=== PATIENT | male | born 1985 | race Caucasian/White ===

== ENCOUNTER 2016-09-12 13:35 | Emergency (ER) | payer OTHER ==
[2016-09-12] MEDS ORDERED: ONDANSETRON ODT 4 MG TAB PO STA (15:28)
[2016-09-12] MEDS ORDERED: ONDANSETRON 4 MG ODT STARTER PACK 2 TAB BTL PO STA (15:28)
--- NOTE | 2016-09-12 15:30 | ED ---
General Adult HPI - General Chief complaint: Nausea/Vomiting/Diarrhea Stated complaint: Nausea/Vomiting Time Seen by Provider: 09/12/16 15:11 Source: patient, RN notes reviewed Mode of arrival: ambulatory Limitations: no limitations - History of Present Illness Initial comments: Patient 30-year-old male who presents emergency room today with chief complaint of symptoms of nausea vomiting that began earlier today. He does admit that there've been several people in his house that has similar symptoms. States most recently his daughter was sick for 3 days with similar symptoms. Patient states his symptoms started early this morning his had one episode of vomiting. Denies any abdominal pain at this time. States still feeling nauseated. Denies any other complaints. States he was at work was sent home decided come here to the emergency room to be checked. Patient denies any recent fever, chills, shortness of breath, chest pain, back pain, abdominal pain, numbness or tingling, dysuria or hematuria, constipation or diarrhea, headaches or visual changes, or any other complaints. - Related Data Home Medications Medication Instructions Recorded Confirmed Zofran(Unknown Dose) 1 tab PO ONCE PRN 09/12/16 09/12/16 Previous Rx's Medication Instructions Recorded Ondansetron Odt [Zofran ODT] 4 mg PO Q8HR PRN #20 tab 09/12/16 Allergies Allergy/AdvReac Type Severity Reaction Status Date / Time No Known Allergies Allergy Verified 09/12/16 15:38 Review of Systems ROS Statement: Those systems with pertinent positive or pertinent negative responses have been documented in the HPI. ROS Other: All systems not noted in ROS Statement are negative. Past Medical History Past Medical History: No Reported History History of Any Multi-Drug Resistant Organisms: None Reported Past Surgical History: No Surgical Hx Reported Past Psychological History: No Psychological Hx Reported Smoking Status: Current every day smoker Past Alcohol Use History: Rare Past Drug Use History: None Reported General Exam - General Exam Comments Initial Comments: General: The patient is awake and alert, in no distress, and does not appear acutely ill. Eye: Pupils are equal, round and reactive to light, extra-ocular movements are intact. No nystagmus. There is normal conjunctiva bilaterally. No signs of icterus. Ears, nose, mouth and throat: There are moist mucous membranes and no oral lesions. Neck: The neck is supple, there is no tenderness or JVD. Cardiovascular: There is a regular rate and rhythm. No murmur, rub or gallop is appreciated. Respiratory: Lungs are clear to auscultation, respirations are non-labored, breath sounds are equal. No wheezes, stridor, rales, or rhonchi. Gastrointestinal: Soft, non-distended, non-tender abdomen without masses or organomegaly noted. There is no rebound or guarding present. No CVA tenderness. Bowel sounds are unremarkable. Musculoskeletal: Normal ROM, no tenderness. Strength 5/5. Sensation intact. Pulses equal bilaterally 2+. Neurological: A&O x 3. CN II-XII intact, There are no obvious motor or sensory deficits. Coordination appears grossly intact. Speech is normal. Skin: Skin is warm and dry and no rashes or lesions are noted. Psychiatric: Cooperative, appropriate mood & affect, normal judgment. Limitations: no limitations Course Vital Signs 09/12/16 14:12 Temperature 98.2 F Pulse Rate 81 Respiratory 16 Rate Blood Pressure 112/68 O2 Sat by Pulse 98 Oximetry Medical Decision Making - Medical Decision Making Patient will be given nausea medication here in emergency room. At this times in agreement that he does not feel it necessary to have IV. His abdomen soft nontender. Patient discharged home with nausea medication advised to return or follow-up family doctor. Disposition Clinical Impression: Nausea & vomiting Disposition: HOME SELF-CARE Condition: Good Instructions: Acute Nausea and Vomiting (ED) Additional Instructions: Please use medication as discussed. Please follow-up with family doctor in the next 2 days of symptoms have not improved. Please return to emergency room if the symptoms increase or worsen or for any other concerns. Prescriptions: Ondansetron Odt [Zofran ODT] 4 mg PO Q8HR PRN #20 tab PRN Reason: Nausea Referrals: None,Stated [Primary Care Provider] - 1-2 days Time of Disposition: 15:30
[2016-09-12 16:04] VITALS: BP 124/68; PULSE 72; RESP 18; TEMP 98.4
== END 2016-09-12 16:02 | disposition home or self-care (01) ==
LOC: EC 13:35
DX: R11.2 Nausea with vomiting, unspecified (principal); F17.200 Nicotine dependence, unspecified, uncomplicated
CPT/HCPCS: 99283; S0119

== ENCOUNTER 2016-10-30 13:49 | Emergency (ER) | payer OTHER ==
[2016-10-30 13:58] VITALS: BP 143/79; PULSE 78; RESP 20; TEMP 98.3
[2016-10-30] MEDS ORDERED: methylPREDNISolone SOD SUCCI 125 MG/2 ML VIAL IM ONE (14:08)
--- NOTE | 2016-10-30 14:08 | ED ---
Eye Problem HPI - General Chief complaint: Eye Problems Stated complaint: Eye Problems Time Seen by Provider: 10/30/16 13:59 Source: patient Mode of arrival: ambulatory Limitations: no limitations - History of Present Illness Initial comments: 30-year-old male presents to the ER complaining of left eyelid swelling and pain. He states that it started yesterday morning but was not too severe as he did work the full day. He states that when he woke up this morning it was more swollen. He has been doing warm compresses today and that has helped bring the swelling down. He states that there was no trauma and it does not feel like there is a foreign body in the eye. He states that he does have pets at home has an indoor job and does report that no other people he is in contact with her having any eye symptoms at this time. He states that he does have a young child at home and was concerned with being contagious. He states that he has no vision change and no eye pain however irritation from the eyelid being swollen. Since that he has no constitutional symptoms including fever, headache , chills, sore throat. He states that he does have some seasonal ALLERGIES and he has been taking Claritin on and off for that. - Related Data Home Medications Medication Instructions Recorded Confirmed No Known Home Medications [No 10/30/16 10/30/16 Known Home Medications] Allergies Allergy/AdvReac Type Severity Reaction Status Date / Time No Known Allergies Allergy Verified 10/30/16 13:58 Review of Systems ROS Statement: Those systems with pertinent positive or pertinent negative responses have been documented in the HPI. ROS Other: All systems not noted in ROS Statement are negative. Past Medical History Past Medical History: No Reported History History of Any Multi-Drug Resistant Organisms: None Reported Past Surgical History: No Surgical Hx Reported Past Psychological History: No Psychological Hx Reported Smoking Status: Current every day smoker Past Alcohol Use History: None Reported Past Drug Use History: None Reported General Exam Limitations: no limitations General appearance: alert, in no apparent distress Head exam: Present: atraumatic, normocephalic Eye exam: Present: PERRL, EOMI, other (Left upper eyelid edematous, very minimal scleral injection of the left lateral eye. Right eye within normal limits. Vision is 20/20 OD, OS, both eyes.) Pupils: Present: normal accommodation ENT exam: Present: normal exam, normal oropharynx, mucous membranes moist, TM's normal bilaterally (Moderate amount of wax poor visualization.) Neck exam: Present: normal inspection, full ROM Respiratory exam: Present: normal lung sounds bilaterally Cardiovascular Exam: Present: regular rate, normal rhythm Neurological exam: Present: alert, oriented X3, CN II-XII intact Psychiatric exam: Present: normal affect, normal mood Skin exam: Present: warm, dry, intact Course Vital Signs 10/30/16 13:56 Temperature 98.3 F Pulse Rate 78 Respiratory 20 Rate Blood Pressure 143/79 O2 Sat by Pulse 98 Oximetry Medical Decision Making - Medical Decision Making 30-year-old male presents to the ER with left eyelid swelling and pain. He was nervous of being contagious due to having a small child at home. No other people he is to contact have any eye issues. Upon exam his eye does not appear to be infectious in nature. It does appear that this is either secondary to a bug bite or irritation or contact/allergic reaction. We'll recommend a Solu- Medrol injection in the ER today to help decrease reaction. Patient is to take his Claritin every morning and take Benadryl at night. He is to follow-up with his primary care physician. Also recommended to continue warm compresses and may use teabags if he would like to help minimize the swelling. No visual deficits. All questions were answered and patient was agreeable with treatment plan. To return to the ER with any worsening or new symptoms or concerns. Disposition Clinical Impression: Swelling of left eyelid Disposition: HOME SELF-CARE Condition: Good Instructions: Blepharitis (ED) Referrals: Shantanu Arenas MD [Primary Care Provider] - 1-2 days Time of Disposition: 14:19
== END 2016-10-30 14:26 | disposition home or self-care (01) ==
LOC: EC 13:49
DX: H02.844 Edema of left upper eyelid (principal); H57.12 Ocular pain, left eye; F17.200 Nicotine dependence, unspecified, uncomplicated
CPT/HCPCS: 99282; 96372; J2930

== ENCOUNTER 2016-11-02 09:14 | Emergency (ER) | payer OTHER ==
[2016-11-02 09:19] VITALS: BP 146/74; PULSE 84; RESP 16; TEMP 97
--- NOTE | 2016-11-02 10:02 | ED ---
Eye Problem HPI - General Chief complaint: Eye Problems Stated complaint: eye pain Time Seen by Provider: 11/02/16 09:51 Source: patient, RN notes reviewed Mode of arrival: ambulatory Limitations: no limitations - History of Present Illness Initial comments: 29-year-old male presents emergency Department chief complaint left eye redness , drainage. Patient states is another day told he had ALLERGIES but states is getting worse it's now crusted and purulent Drainage. Patient denies fever, chills, visual changes. Patient states that he's had no other changes he has been using the Claritin as directed but states is not helping. - Related Data Home Medications Medication Instructions Recorded Confirmed Loratadine [Claritin] 10 mg PO DAILY 11/02/16 11/02/16 diphenhydrAMINE [Benadryl] 25 mg PO HS PRN 11/02/16 11/02/16 Previous Rx's Medication Instructions Recorded Tobramycin [Tobrex 0.3% Ophth Soln] 1 drop LEFT EYE Q4HR #5 ml 11/02/16 Allergies Allergy/AdvReac Type Severity Reaction Status Date / Time No Known Allergies Allergy Verified 11/02/16 09:32 Review of Systems ROS Statement: Those systems with pertinent positive or pertinent negative responses have been documented in the HPI. ROS Other: All systems not noted in ROS Statement are negative. Past Medical History Past Medical History: No Reported History History of Any Multi-Drug Resistant Organisms: None Reported Past Surgical History: No Surgical Hx Reported Past Psychological History: No Psychological Hx Reported Smoking Status: Current every day smoker Past Alcohol Use History: None Reported Past Drug Use History: None Reported General Exam Limitations: no limitations General appearance: alert, in no apparent distress Head exam: Present: atraumatic, normocephalic, normal inspection Eye exam: Present: PERRL, EOMI, conjunctival injection (Left), other (Purulent drainage noted). Absent: normal appearance, scleral icterus, periorbital swelling, periorbital tenderness ENT exam: Present: normal exam, normal oropharynx, mucous membranes moist Neck exam: Present: normal inspection. Absent: tenderness, meningismus, lymphadenopathy Respiratory exam: Present: normal lung sounds bilaterally. Absent: respiratory distress, wheezes, rales, rhonchi, stridor Cardiovascular Exam: Present: regular rate, normal rhythm, normal heart sounds. Absent: systolic murmur, diastolic murmur, rubs, gallop, clicks Neurological exam: Present: alert Course Vital Signs 11/02/16 09:16 Temperature 97.0 F L Pulse Rate 84 Respiratory 16 Rate Blood Pressure 146/74 O2 Sat by Pulse 100 Oximetry Medical Decision Making - Medical Decision Making 30-year-old male present emergency department for left eye redness drainage. Patient was treated for bacterial conjunctivitis with tobramycin. Return parameters were discussed. Disposition Clinical Impression: Bacterial conjunctivitis Disposition: HOME SELF-CARE Condition: Stable Instructions: Conjunctivitis (ED) Additional Instructions: Please return to the Emergency Department if symptoms worsen or any other concerns. Prescriptions: Tobramycin [Tobrex 0.3% Ophth Soln] 1 drop LEFT EYE Q4HR #5 ml Time of Disposition: 10:02
== END 2016-11-02 10:15 | disposition home or self-care (01) ==
LOC: EC 09:14
DX: H10.89 Other conjunctivitis (principal); F17.200 Nicotine dependence, unspecified, uncomplicated; Z79.899 Other long term (current) drug therapy
CPT/HCPCS: 99283

== ENCOUNTER 2017-07-05 02:55 | Emergency (ER) | payer OTHER ==
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
--- NOTE | 2017-07-05 04:27 | XR ---
EXAM: XR Left Ankle Complete, 3 or More Views CLINICAL HISTORY: Reason: Pain TECHNIQUE: Frontal, lateral and oblique views of the left ankle. COMPARISON: No relevant prior studies available. FINDINGS: Bones/joints: Unremarkable. No acute fracture. No dislocation. Soft tissues: Unremarkable. IMPRESSION: Normal left ankle radiographs.
--- NOTE | 2017-07-05 04:27 | XR ---
EXAM: XR Left Foot Complete, 3 or More Views CLINICAL HISTORY: Reason: Pain TECHNIQUE: Frontal, lateral and oblique views of the left foot. COMPARISON: No relevant prior studies available. FINDINGS: Bones/joints: Unremarkable. No acute fracture. No dislocation. Soft tissues: Unremarkable. No radiopaque foreign body. IMPRESSION: Normal left foot radiographs.
--- NOTE | 2017-07-05 04:29 | CT ---
EXAM: CT Head Without Intravenous Contrast CLINICAL HISTORY: Reason: Pain TECHNIQUE: Axial computed tomography images of the head/brain without intravenous contrast. CTDI is 57.40 mGy and DLP is 892.1 mGy-cm. This CT exam was performed using one or more of the following dose reduction techniques: automated exposure control, adjustment of the mA and/or kV according to patient size, and/or use of iterative reconstruction technique. COMPARISON: No relevant prior studies available. FINDINGS: Brain: Unremarkable. No hemorrhage. No significant white matter disease. No edema. Ventricles: Unremarkable. No ventriculomegaly. Bones/joints: Unremarkable. No acute fracture. Soft tissues: Unremarkable. Sinuses: Unremarkable as visualized. No acute sinusitis. Mastoid air cells: Unremarkable as visualized. No mastoid effusion. IMPRESSION: No acute intrarenal process identified.
[2017-07-05 05:44] VITALS: BP 125/73; PULSE 70; RESP 18; TEMP 97.3
== END 2017-07-05 05:43 | disposition home or self-care (01) ==
LOC: EC 02:55
DX: S93.402A Sprain of unspecified ligament of left ankle, initial encounter (principal); S00.83XA Contusion of other part of head, initial encounter; R40.2412 Glasgow coma scale score 13-15, at arrival to emergency department; R11.0 Nausea; F17.200 Nicotine dependence, unspecified, uncomplicated; Y92.89 Other specified places as the place of occurrence of the external cause; V49.49XA Driver injured in collision with other motor vehicles in traffic accident, initial encounter
CPT/HCPCS: 70450; 99284

== ENCOUNTER 2019-04-30 07:49 | Emergency (ER) | payer OTHER ==
[2019-04-30 07:54] VITALS: TEMP 97.9
--- NOTE | 2019-04-30 08:28 | ED ---
URI HPI - General Chief Complaint: Upper Respiratory Infection Stated Complaint: cold/chest congestion Time Seen by Provider: 04/30/19 07:57 Source: patient, RN notes reviewed Mode of arrival: ambulatory Limitations: no limitations - History of Present Illness Initial Comments: 33-year-old male presents emergency Department with chief complaint of cough congestion. Patient states she's been sick for last 4-5 days. Patient states is productive cough with green to yellow sputum. Patient denies any known fevers or chills. He states that he's had multiple sick contacts. Patient recently stopped smoking. Patient states she has mildly congestion, mild sore throat. Patient's taking [id number] TheraFlu. - Related Data Previous Rx's Medication Instructions Recorded Cyclobenzaprine [Flexeril] 10 mg PO TID #14 tab 07/05/17 Ibuprofen 800 mg PO Q6HR PRN #20 tablet 07/05/17 Amoxicillin/Potassium Clav 1 tab PO Q12HR #20 tab 04/30/19 [Augmentin 875-125 Tablet] predniSONE 50 mg PO DAILY #5 tab 04/30/19 Allergies Allergy/AdvReac Type Severity Reaction Status Date / Time No Known Allergies Allergy Verified 11/02/16 09:32 Review of Systems ROS Statement: Those systems with pertinent positive or pertinent negative responses have been documented in the HPI. ROS Other: All systems not noted in ROS Statement are negative. Past Medical History Past Medical History: No Reported History History of Any Multi-Drug Resistant Organisms: None Reported Past Surgical History: No Surgical Hx Reported Past Psychological History: Depression Smoking Status: Former smoker Past Alcohol Use History: Occasional Past Drug Use History: None Reported General Exam Limitations: no limitations General appearance: alert, in no apparent distress Head exam: Present: atraumatic, normocephalic, normal inspection Eye exam: Present: normal appearance, PERRL, EOMI. Absent: scleral icterus, conjunctival injection, periorbital swelling ENT exam: Present: mucous membranes moist, TM's normal bilaterally. Absent: normal exam (Postnasal drainage), normal oropharynx (Mild erythema) Neck exam: Present: normal inspection, full ROM. Absent: tenderness, meningismus, lymphadenopathy Respiratory exam: Present: normal lung sounds bilaterally. Absent: respiratory distress, wheezes, rales, rhonchi, stridor Cardiovascular Exam: Present: regular rate, normal rhythm, normal heart sounds. Absent: systolic murmur, diastolic murmur, rubs, gallop, clicks GI/Abdominal exam: Present: soft, normal bowel sounds. Absent: distended, tenderness, guarding, rebound, rigid Course Vital Signs 04/30/19 04/30/19 07:51 07:55 Temperature 97.9 F Pulse Rate 86 Respiratory 18 18 Rate Blood Pressure 119/65 O2 Sat by Pulse 98 Oximetry Medical Decision Making - Medical Decision Making Chest x-rays unremarkable. Patient is a productive cough, sinus congestion consistent with acute bronchitis and sinusitis. Patient discharged Augmentin and prednisone. Disposition Clinical Impression: Sinusitis, Bronchitis Disposition: HOME SELF-CARE Condition: Stable Instructions (If sedation given, give patient instructions): Upper Respiratory Infection (ED) Additional Instructions: Please return to the Emergency Department if symptoms worsen or any other concerns. Prescriptions: Amoxicillin/Potassium Clav [Augmentin 875-125 Tablet] 1 tab PO Q12HR #20 tab predniSONE 50 mg PO DAILY #5 tab Is patient prescribed a controlled substance at d/c from ED?: No Referrals: None,Stated [REFERRING] - 1-2 days Time of Disposition: 08:55
--- NOTE | 2019-04-30 08:35 | XR ---
EXAMINATION TYPE: XR chest 2V DATE OF EXAM: 04/30/2019 COMPARISON: None HISTORY: Cough, flu symptoms TECHNIQUE: Frontal and lateral views of the chest are obtained. FINDINGS: There is no focal air space opacity, pleural effusion, or pneumothorax seen. The cardiac silhouette size is within normal limits. The osseous structures are intact. IMPRESSION: No acute cardiopulmonary process.
[2019-04-30 08:59] VITALS: BP 120/72; PULSE 84; RESP 16
== END 2019-04-30 08:57 | disposition home or self-care (01) ==
LOC: EC 07:49
DX: J20.9 Acute bronchitis, unspecified (principal); J32.9 Chronic sinusitis, unspecified; Z87.891 Personal history of nicotine dependence
CPT/HCPCS: 71046; 99283

== ENCOUNTER 2022-09-29 13:00 | Inpatient (IN) | payer OTHER ==
[2022-09-29] MEDS ORDERED: DIPH,PERTUS(ACELL)TETVAC-LF 0.5 ML VIAL IM ONE (13:19)
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
[2022-09-29 13:44] LABS: Basophils % (A) 0 %; Eosinophils # (A) 0.2 k/uL (0-0.7); Eosinophils % (A) 1 %; HCT 46.2 % (39.0-53.0); Lymphocytes # (A) 1.7 k/uL (1.0-4.8); Lymphocytes % (A) 15 %; MCH 30.7 pg (25.0-35.0); MCHC 34.7 g/dL (31.0-37.0); MCV 88.6 fL (80.0-100.0); Mean Platelet Volume 7.9; Monocytes # (A) 0.7 k/uL (0-1.0); Monocytes % (A) 6 %; Neutrophils # (A) 8.4 k/uL (1.3-7.7); Neutrophils % (A) 76 %; Platelet Count 219 k/uL (150-450); RBC 5.22 m/uL (4.30-5.90); WBC 11.1 k/uL (3.8-10.6)
[2022-09-29 13:53] LABS: Partial Thromboplastin Time 23.7 sec (22.0-30.0); Prothrombin Time 10.9 sec (9.0-12.0)
[2022-09-29 13:58] LABS: ALT 26 U/L (4-49); AST 36 U/L (17-59); African American GFR (CKD) >90 (>60 ml/min/1.73 sqM); Albumin 4.7 g/dL (3.5-5.0); Alcohol <10 mg/dL; Alkaline Phosphatase 62 U/L (38-126); Anion Gap 9 mmol/L; Blood Urea Nitrogen 10 mg/dL (9-20); Calcium 9.4 mg/dL (8.4-10.2); Carbon Dioxide 25 mmol/L (22-30); Chloride 106 mmol/L (98-107); Glucose 102 mg/dL (74-99); Non-African American GFR(CKD) >90 (>60 ml/min/1.73 sqM); Potassium 4.4 mmol/L (3.5-5.1); Sodium 140 mmol/L (137-145); Total Bilirubin 0.6 mg/dL (0.2-1.3); Total Protein 7.3 g/dL (6.3-8.2)
[2022-09-29] MEDS ORDERED: HYDROmorphone 0.5 MG/0.5 ML SYRINGE IVP STA (14:10)
[2022-09-29] MEDS ORDERED: ONDANSETRON 4 MG/2 ML VIAL IVP STA (14:10)
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
[2022-09-29] MEDS ORDERED: NALOXONE 0.4 MG/ML 1 ML VIAL IV PRN (15:08)
[2022-09-29] MEDS ORDERED: ONDANSETRON 4 MG/2 ML VIAL IVP PRN (15:08)
[2022-09-29] MEDS ORDERED: ACETAMINOPHEN TAB 325 MG TAB PO PRN (16:21)
[2022-09-29] MEDS: HYDROcodone/APAP 5-325MG 1 EACH TAB PO PRN ×2 (16:22→21:00)
[2022-09-29 16:42] LABS: Amphetamine Screen,Urine Not Detected (NotDetected); Barbiturate Screen,Urine Not Detected (NotDetected); Benzodiazepines Screen,Urine Not Detected (NotDetected); Cocaine Screen,Urine Not Detected (NotDetected); Methadone Screen, Urine Not Detected (NotDetected); Opiate Screen,Urine Detected (NotDetected); Oxycodone Screen, Urine Not Detected (NotDetected); Phencyclidine Screen,Urine Not Detected (NotDetected); Tricyclic Antidepressant,Urine Not Detected (NotDetected); Urn Cannabinoid Scrn Detected (NotDetected)
[2022-09-29] MEDS: HYDROmorphone 0.5 MG/0.5 ML SYRINGE IVP PRN ×2 (18:46→23:46)
[2022-09-29] MEDS: HEPARIN SODIUM,PORCINE/PF 5,000 UNIT/0.5 ML SYRINGE SQ SCH (23:43)
[2022-09-30] MEDS: HYDROmorphone 0.5 MG/0.5 ML SYRINGE IVP PRN ×3 (06:28→19:37)
[2022-09-30 09:06] LABS: Basophils % (A) 0 %; Eosinophils # (A) 0.4 k/uL (0-0.7); Eosinophils % (A) 5 %; HCT 43.2 % (39.0-53.0); HGB 14.3 gm/dL (13.0-17.5); Lymphocytes # (A) 2.3 k/uL (1.0-4.8); Lymphocytes % (A) 26 %; MCH 30.3 pg (25.0-35.0); MCV 91.8 fL (80.0-100.0); Mean Platelet Volume 8.5; Monocytes # (A) 0.6 k/uL (0-1.0); Monocytes % (A) 7 %; Neutrophils # (A) 5.6 k/uL (1.3-7.7); Neutrophils % (A) 61 %; Platelet Count 205 k/uL (150-450); RBC 4.71 m/uL (4.30-5.90); RDW 12.7 % (11.5-15.5); WBC 9.1 k/uL (3.8-10.6)
[2022-09-30] MEDS: HYDROcodone/APAP 5-325MG 1 EACH TAB PO PRN ×2 (09:28→20:46)
[2022-09-30] MEDS: HEPARIN SODIUM,PORCINE/PF 5,000 UNIT/0.5 ML SYRINGE SQ SCH ×2 (09:29→15:31)
[2022-09-30 11:28] LABS: African American GFR (CKD) 100.3 (60.0-200.0); Albumin 4.2 g/dL (3.8-4.9); Albumin/Globulin Ratio 2.21 (1.60-3.17); Blood Urea Nitrogen 13.2 mg/dL (9.0-27.0); Calcium 9.1 mg/dL (8.7-10.3); Globulin 1.9 g/dL (1.6-3.3); Non-African American GFR(CKD) 86.5 (60.0-200.0); Potassium 4.2 mmol/L (3.5-5.5); Total Bilirubin 0.9 mg/dL (0.30-1.20); Total Protein 6.1 g/dL (6.2-8.2)
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
[2022-10-01] MEDS: HEPARIN SODIUM,PORCINE/PF 5,000 UNIT/0.5 ML SYRINGE SQ SCH ×2 (00:41→08:15)
[2022-10-01 08:16] VITALS: BP 112/75; PULSE 70; RESP 18; TEMP 98.1
[2022-10-01] MEDS: HYDROcodone/APAP 5-325MG 1 EACH TAB PO PRN (08:19)
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
== END 2022-10-01 10:52 | disposition home or self-care (01) | DRG 914 ==
LOC: EC 13:00 → 4SSUR 15:42
PROVIDERS: ADMIT Surgery; ATTEND Surgery
PROC: 3E0234Z Introduction of Serum, Toxoid and Vaccine into Muscle, Percutaneous Approach (ICD-10-PCS; principal; 2022-09-29)
DX: S39.91XA Unspecified injury of abdomen, initial encounter (principal); Z23 Encounter for immunization; K42.9 Umbilical hernia without obstruction or gangrene; F32.A Depression, unspecified; F17.200 Nicotine dependence, unspecified, uncomplicated; M54.9 Dorsalgia, unspecified; V48.5XXA Car driver injured in noncollision transport accident in traffic accident, initial encounter; Y92.410 Unspecified street and highway as the place of occurrence of the external cause
CPT/HCPCS: 36415; 70450; 71260; 72125; 74177; 80053; 80306; 80320; 84484; 85025; 85610; 85730; 90471; 90715; 93005; 96374; 96375; 99285

== ENCOUNTER → 2022-10-04 | Outpatient (CLI) | payer OTHER ==
--- NOTE | 2022-10-04 14:45 | XR ---
EXAM TYPE: LUMBAR SPINE X RAY SERIES COMPARISON: NONE HISTORY: Pain TECHNIQUE: 4 views are submitted. FINDINGS: Alignment is anatomic. The pedicles are intact. The transverse processes are intact. There is no s pondylolysis or spondylolisthesis. Sclerosis right SI joint could be on the basis of a sacroiliitis. IMPRESSION: 1. No acute process.
--- NOTE | 2022-10-04 14:47 | XR ---
EXAMINATION TYPE: XR thoracic spine 2V DATE OF EXAM: 10/04/2022 COMPARISON: NONE HISTORY: Pain TECHNIQUE: 3 views submitted FINDINGS: Alignment is anatomic. There is no compression deformities. Vertebral body height and disc interspa marianela are maintained. Subtle curvature of the spine correlated for scoliosis. IMPRESSION: 1. No acute abnormality. If symptoms are persistent or there is concern for disc herniation correlat e with MRI.
== END | disposition home or self-care (01) ==
LOC: RADXRMAIN 13:48
PROVIDERS: ATTEND Family Medicine
DX: M54.50 Low back pain, unspecified (principal); M54.6 Pain in thoracic spine; V89.2XXD Person injured in unspecified motor-vehicle accident, traffic, subsequent encounter
CPT/HCPCS: 72070; 72110

== ENCOUNTER → 2022-10-05 | Outpatient (CLI) | payer OTHER ==
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
== END | disposition home or self-care (01) ==
LOC: RADCTMAIN 10:35
PROVIDERS: ATTEND Family Medicine
DX: R93.5 Abnormal findings on diagnostic imaging of other abdominal regions, including retroperitoneum (principal)
CPT/HCPCS: 74177; Q9967

== ENCOUNTER → 2022-10-27 | Outpatient (CLI) | payer OTHER ==
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
== END | disposition home or self-care (01) ==
LOC: RADCTMAIN 09:00
PROVIDERS: ATTEND Family Medicine
DX: R93.89 Abnormal findings on diagnostic imaging of other specified body structures (principal)
CPT/HCPCS: 71250

== ENCOUNTER → 2022-11-18 | Outpatient (CLI) | payer OTHER ==
[2022-11-18 20:19] LABS: Basophils # (A) 0.08 X 10*3/uL (0.00-0.10); Basophils % (A) 0.9 %; Eosinophils # (A) 0.14 X 10*3/uL (0.04-0.35); Eosinophils % (A) 1.5 %; HCT 45.6 % (39.6-50.0); HGB 14.9 g/dL (13.0-17.0); Immature Grans, Automated 0.7 %; Lymphocytes # (A) 1.98 X 10*3/uL (0.90-5.00); Lymphocytes % (A) 21.5 %; MCH 30.2 pg (27.0-32.0); MCHC 32.7 g/dL (32.0-37.0); MCV 92.5 fL (80.0-97.0); Mean Platelet Volume 10.4 fL (9.5-12.2); Monocytes # (A) 0.73 X 10*3/uL (0.20-1.00); Monocytes % (A) 7.9 %; NRBC Per 100 WBC 0 /100 WBCS (0.0-0.0); Neutrophils # (A) 6.24 X 10*3/uL (1.80-7.70); Neutrophils % (A) 67.5 %; Platelet Count 256 X 10*3/uL (140-440); RBC 4.93 X 10*6/uL (4.40-5.60); RDW 12.1 % (11.5-14.5); WBC 9.23 X 10*3/uL (4.50-10.00)
[2022-11-18 20:46] LABS: ALT 34 U/L (10-49); AST 21 U/L (14-35); African American GFR (CKD) 112.5 (60.0-200.0); Albumin 4.8 g/dL (3.8-4.9); Alkaline Phosphatase 64 U/L (41-126); Blood Urea Nitrogen 11.9 mg/dL (9.0-27.0); Calcium 9.4 mg/dL (8.7-10.3); Carbon Dioxide 25.9 mmol/L (20.0-27.5); Chloride 103 mmol/L (96-109); Glucose 95 mg/dL (70-110); Non-African American GFR(CKD) 97.1 (60.0-200.0); Potassium 4.6 mmol/L (3.5-5.5); Sodium 140 mmol/L (135-145); Total Protein 6.8 g/dL (6.2-8.2)
== END | disposition home or self-care (01) ==
LOC: LABWHC1 11:48
PROVIDERS: ATTEND Nurse Practitioner Acute Care
DX: E55.9 Vitamin D deficiency, unspecified (principal); E53.9 Vitamin B deficiency, unspecified; G43.909 Migraine, unspecified, not intractable, without status migrainosus; R42 Dizziness and giddiness; R41.3 Other amnesia
CPT/HCPCS: 36415; 80053; 82306; 82607; 84207; 84443; 84481; 85025